=== PATIENT | male | born 1975 | race Caucasian/White ===

== ENCOUNTER 2024-10-26 15:51 | Outpatient (OUT) | payer OTHER, SELFPAY ==
--- NOTE | 2024-10-26 15:59 | XR_ITS ---
The [address] [address] Patient Name: KELLE ALATORRE MRN: [id number] date: 1975 Sex: M Assigned Patient Location: [facility] Current Patient Location: [facility] Accession/Order Number: [id number] Exam Date: 10/26/2024 16:42 Report Date: 10/26/2024 16:43 At the request of: ALTHEA HALL Procedure: XR ribs LT 2V 1 view chest with 5 views left RIBS. Reason for exam: Left rib pain. COMPARISON: None. FINDINGS: Heart appears normal in size. No consolidation pneumothorax pleural effusion or free air. No displaced left-sided rib fracture. XR/XR ribs LT 2V IMPRESSION: No acute process. Impression dictated by: Landry Parrish Jr., D.O. 10/26/2024 4:43 PM Dictation Location: [place] [address] Electronically authenticated by: [id number] Y Date: 10/26/2024 16:43
== END 2024-10-26 15:52 | disposition home or self-care (01) ==
LOC: RAD 15:54
PROVIDERS: Visit Provider Psychiatry & Neurology Neurology
DX: R07.81 Pleurodynia (principal)
CPT/HCPCS: 71100